=== PATIENT | female | born 1950 | race Asian ===

== ENCOUNTER 2017-08-16 15:30 | Inpatient (IN) | payer MEDICARE, OTHER ==
[2017-08-16] VITALS (7 sets, daily range): BP systolic 140–183; BP diastolic 52–74
[~2017-08-16] VITALS: Ht 160 cm; Wt 54.4 kg
[2017-08-16 16:25] LABS: BASOPHILS % (AUTO) 0.5 % (0.0-2.0); EOSINOPHILS % (AUTO) 0.5 % (0.0-3.0); HEMATOCRIT 34.7 % (37.0-47.0); HEMOGLOBIN 11.2 G/DL (12.0-16.0); LYMPHOCYTES % (AUTO) 32.2 % (20.0-45.0); MEAN CORPUSCULAR VOLUME 91 FL (80-99); MONOCYTES % (AUTO) 8.5 % (1.0-10.0); NEUTROPHILS % (AUTO) 58.3 % (45.0-75.0); PLATELET COUNT 234 K/UL (150-450); RED BLOOD COUNT 3.83 M/UL (4.20-5.40); WHITE BLOOD COUNT 6.1 K/UL (4.8-10.8)
[2017-08-16 16:39] LABS: ANION GAP 12 mmol/L (5-15); BLOOD UREA NITROGEN 23 mg/dL (7-18); CALCIUM 9.3 MG/DL (8.5-10.1); CARBON DIOXIDE 26 MMOL/L (21-32); CHLORIDE 106 MMOL/L (98-107); CREATININE 0.7 MG/DL (0.55-1.30); POTASSIUM 3.5 MMOL/L (3.5-5.1); SODIUM 144 MMOL/L (136-145)
[2017-08-16 16:59] LABS: APPEARANCE,URINE CLEAR; BILIRUBIN, URINE NEGATIVE (NEGATIVE); COLOR,URINE PALE YELLOW; GLUCOSE, URINE (UA) 4+ (NEGATIVE); KETONES,URINE 1+ (NEGATIVE); LEUKOCYTE ESTERASE ,URINE 1+ (NEGATIVE); NITRITE,URINE NEGATIVE (NEGATIVE); PH,URINE 8 (4.5-8.0); PROTEIN,URINE 1+ (NEGATIVE); UROBILINOGEN,URINE NORMAL MG/DL (0.0-1.0)
[2017-08-16 17:03] LABS: ALANINE AMINOTRANSFERASE 15 U/L (12-78); ALBUMIN 4.1 G/DL (3.4-5.0); ALBUMIN/GLOBULIN RATIO 1.2 (1.0-2.7); ALKALINE PHOSPHATASE 86 U/L (46-116); ASPARTATE AMINO TRANSFERASE 16 U/L (15-37); BILIRUBIN,TOTAL 0.6 MG/DL (0.2-1.0); CKMB 0.5 NG/ML (0.0-3.6); CREATINE KINASE 59 U/L (26-308); PHOSPHORUS 3.9 MG/DL (2.5-4.9)
[2017-08-16] MEDS ORDERED: ELIQUIS5 MG PO (17:23)
[2017-08-16] MEDS ORDERED: JANUVIA25 MG ORAL (17:24)
[2017-08-16] MEDS ORDERED: ATORVASTATIN CA80 MG ORAL (17:26)
[2017-08-16] MEDS ORDERED: LEVOTHYROXINE50 MCG ORAL (17:30)
[2017-08-16] MEDS ORDERED: METFORMIN HCL500 M5 PO (17:31)
[2017-08-16] MEDS ORDERED: INVOKANA300 MG PO (17:31)
[2017-08-16] MEDS ORDERED: LISINOPRIL20 MG ORAL (17:32)
--- NOTE | 2017-08-16 18:33 | Emergency Room Report ---
History of Present Illness General Chief Complaint: Vomiting Source: Patient, Significant Other, EMS Present Illness HPI 67yo F p/w vomiting multiple episodes around noon today while visiting [place] area Her reports as they were drivingthis afternoon patient seemed to have passed out as well in the car There was no report of focal weakness slurred speech or any other problems No severe headache, just nausea vomiting and lightheadedness and syncope Allergies: Coded Allergies: No Known Allergies (Unverified , 08/16/17) Patient History Past Medical History: see triage record Reviewed Nursing Documentation: PMH: Agreed, PSxH: Agreed Nursing Documentation-PMH Past Medical History Deferred: Pt Cognitively Impaired Hx Hypertension: Yes Hx Diabetes: Yes Review of Systems All Other Systems: negative except mentioned in HPI Physical Exam Vital Signs Date Time Temp Pulse Resp B/P (MAP) Pulse Ox O2 Delivery O2 Flow Rate FiO2 08/16/17 15:21 98.2 89 20 170/88 99 Room Air Sp02 EP Interpretation: reviewed, normal General Appearance: no apparent distress, alert, non-toxic Head: normocephalic Eyes: bilateral eye normal inspection, bilateral eye PERRL, bilateral eye EOMI ENT: normal ENT inspection, hearing grossly normal, normal pharynx, no angioedema, normal voice, moist mucus membranes Neck: normal inspection, full range of motion, supple, supple/symm/no masses Respiratory: chest non-tender, lungs clear, normal breath sounds, chest symmetrical, palpation of chest normal Cardiovascular #1: normal peripheral pulses, regular rate, rhythm Cardiovascular #2: 2+ radial (R), 2+ radial (L), 2+ dorsalis pedis (R), 2+ dorsalis pedis (L) Gastrointestinal: normal inspection, non tender, soft, no mass, no guarding, no rebound Rectal: deferred Genitourinary: normal inspection, no CVA tenderness Musculoskeletal: back normal, gait/station normal, normal range of motion, non- tender, no calf tenderness Neurologic: alert, oriented x3, responsive, hand upper and bottom lacer III-XII nml as tested, motor strength/tone normal - Patient with history of left-sided wweakness, from old stroke, but on exam today he moves all extremities symmetrically, sensory intact , speech normal Psychiatric: judgement/insight normal, memory normal, mood/affect normal, no suicidal/homicidal ideation Skin: normal color, no rash, warm/dry, normal turgor Lymphatic: no adenopathy Medical Decision Making Diagnostic Impression: Primary Impression: Vomiting ER Course patient with persistent vomiting and dizziness Head CT shows no acute findings, she is on eliquis for old strokes EKG normal Labs normal Chest x-ray and abdominal flat and upright x-ray normal Patient still with nausea No focal finding Negative Homans sign on both legs Will admit for further monitoring diagnosis dizziness persistent vomiting despite Zofran and Phenergan EKG Diagnostic Results EP Interpretation: No ST-T segment changes no T-wave inversions rate 67 Rate: normal Rhythm: NSR ST Segments: no acute changes Rhythm Strip Diag. Results EP Interpretation: yes Rate: 67 Rhythm: NSR, no PVC's, no ectopy Chest X-Ray Diagnostic Results Chest X-Ray Diagnostic Results : Chest X-Ray Ordered: Yes # of Views/Limited/Complete: 1 View Indication: Other EP Interpretation: Yes PA Xray: Interpretation reviewed Interpretation: no consolidation, no effusion, no pneumothorax, no acute cardiopulmonary disease Impression: No acute disease Electronically Signed by: Vilma Pak MD Other X-Ray Diagnostic Results Other X-Ray Diagnostic Results : X-Ray ordered: abd flat and upright Indication: Other EP Interpretation: Yes PA Xray: Interpretation reviewed Interpretation: nonspecific bowel gas, no sbo Impression: No acute disease Electronically Signed by: Vilma Pak MD CT/MRI/US Diagnostic Results CT/MRI/US Diagnostic Results : Imaging Test Ordered: ct head Impression no acute disease per the radiologist Last Vital Signs Date Time Temp Pulse Resp B/P (MAP) Pulse Ox O2 Delivery O2 Flow Rate FiO2 08/16/17 17:40 68 14 159/60 100 Room Air 08/16/17 16:30 97.0 Status: improved Reevaluation Impression patient still with no focal neurologic deficits, but some of her nausea is improved with Zofran and Phenergan As she is on eliquis, I will not give her aspirin Disposition: ADMITTED INPATIENT Condition: Stable Referrals: NON PHYSICIAN (PCP) VILMA PAK M.D Aug 16, 2017 18:33
[2017-08-17] VITALS: BP 136/60
[2017-08-17] MEDS: 1/2NS w/KCl 20mEq 1000ml 1,000 ML IV SCH ×2 (00:47→13:33)
[2017-08-17 04:00] VITALS: BP 150/67
[2017-08-17] MEDS: NovoLOG Insulin Flexpen SUBQ SCH ×4 (06:30→21:00)
[2017-08-17 08:00] VITALS: BP 146/66
--- NOTE | 2017-08-17 08:23 | Diagnostic Imaging Report ---
Indications: Altered mental status Technique: Spiral acquisitions obtained through the brain. Angled axial and coronal 5 x 5 mm slices were reconstructed. Total dose length product 1263.48 mGycm. CTDI vol(s) 70.38 mGy. Dose reduction achieved using automated exposure control Comparison: None. Findings: There is age-related enlargement of the ventricles and extra-axial CSF spaces. There is considerable periventricular deep white matter chronic ischemic change. Old lacunar infarcts are seen in the bilateral basal ganglia, bilateral thalami, bilateral madsen radiata. The palomares-white differentiation is otherwise normal. No acute intracranial hemorrhage or edema. No mass effect or midline shift. There is chronic right maxillary sinus periosteal thickening. Visualized orbits are unremarkable. The mastoids are clear. Impression: Chronic and age-related changes. Multiple old lacunar infarcts. Negative for acute intracranial bleed or mass effect This agrees with the preliminary interpretation provided overnight by [facility]. The CT scanner at [facility] is accredited by the [employer] and the scans are performed using protocols designed to limit radiation exposure to as low as reasonably achievable to attain images of sufficient resolution adequate for diagnostic evaluation.
[2017-08-17] MEDS: Eliquis 2.5mg tablet ORAL SCH ×2 (09:23→19:05)
[2017-08-17] MEDS: metFORMIN 500mg tab ORAL SCH ×3 (09:24→18:00)
[2017-08-17] MEDS: sitaGLIPtin 25mg tab ORAL SCH (09:24)
[2017-08-17] MEDS: Lisinopril 20mg tab ORAL SCH (09:24)
[2017-08-17 11:06] LABS: BASOPHILS % (AUTO) 0.4 % (0.0-2.0); EOSINOPHILS % (AUTO) 0.2 % (0.0-3.0); HEMATOCRIT 33.6 % (37.0-47.0); HEMOGLOBIN 10.8 G/DL (12.0-16.0); LYMPHOCYTES % (AUTO) 15.2 % (20.0-45.0); MEAN CORPUSCULAR VOLUME 91 FL (80-99); NEUTROPHILS % (AUTO) 77.2 % (45.0-75.0); PLATELET COUNT 211 K/UL (150-450); RED BLOOD COUNT 3.69 M/UL (4.20-5.40); RED CELL DISTRIBUTION WIDTH 11.7 % (11.6-14.8); WHITE BLOOD COUNT 5.4 K/UL (4.8-10.8)
[2017-08-17 11:50] LABS: ANION GAP 7 mmol/L (5-15); BLOOD UREA NITROGEN 20 mg/dL (7-18); CALCIUM 8.5 MG/DL (8.5-10.1); CARBON DIOXIDE 27 MMOL/L (21-32); CHLORIDE 104 MMOL/L (98-107); CREATININE 0.7 MG/DL (0.55-1.30); POTASSIUM 3.8 MMOL/L (3.5-5.1); SODIUM 138 MMOL/L (136-145)
[2017-08-17 12:00] VITALS: BP 158/65
--- NOTE | 2017-08-17 12:14 | Diagnostic Imaging Report ---
Indication: Vomiting Technique: Supine view of the abdomen Comparison: None Findings: Circular metallic object projects over the pelvis. Bowel gas pattern is unremarkable. What is presumably a monitoring device projects over the lower chest. No unusual masses. Small calcification projects over the right iliac bone Impression: Round metallic object projecting in the pelvis. Presumably external to the patient, ingested foreign body heights were normal. Correlate with clinical history No acute process otherwise
--- NOTE | 2017-08-17 12:15 | Diagnostic Imaging Report ---
Indication: Vomiting, cough Technique: One view of the chest Comparison: none Findings: The lungs and pleural spaces are clear. The heart size is upper limits of normal. Presumed monitoring device projects over the lower central chest Impression: No acute process
--- NOTE | 2017-08-17 15:45 | History and Physical Report ---
DATE OF ADMISSION: 08/16/2017 CHIEF COMPLAINT: Vomiting. HISTORY OF PRESENT ILLNESS: This is a 67-year-old [place] female, who was transported to this hospital via paramedics due to recurrent episodes of vomiting. The patient was travelling from [place] with family in the [place] area. The patient is wheelchair bound due to multiple episodes of strokes. She started vomiting. PAST MEDICAL HISTORY: 1. Status post multiple CVAs. 2. Hypertensive cardiovascular disease. 3. Hypothyroidism. 4. Type 2 diabetes mellitus. HOME MEDICATIONS: Eliquis, Lipitor, NovoLog sliding scale, Synthroid, lisinopril, metformin, Zofran, and Januvia. ALLERGIES: No known drug allergies. FAMILY HISTORY: Unremarkable. SOCIAL HISTORY: She lives at home. She is nonsmoker and nondrinker. There is no history of illicit drug abuse. REVIEW OF SYSTEMS: Unable to obtain. The patient is nonverbal. PHYSICAL EXAMINATION: GENERAL: This is an elderly [place] female, who is in no acute distress. VITAL SIGNS: Blood pressure is 150/67, pulse 67 and regular, respirations 20, and temperature is 98 degrees. HEENT: Head is normocephalic and atraumatic. Pupils are equal, round, and reactive to light and accommodation consensually. NECK: Supple. Trachea midline. There was no lymphadenopathy or thyromegaly. LUNGS: Clear to auscultation and percussion. HEART: Regular rate and rhythm without rubs, murmurs, or gallops. ABDOMEN: Soft and nontender. Bowel sounds were active. EXTREMITIES: No clubbing, cyanosis, or edema. NEUROLOGICAL: She is confused and dysarthric. She has left hemiplegia. LABORATORY AND ANCILLARY DATA: EKG, normal sinus rhythm. Influenza serology negative. CBC within normal limits. Basic metabolic panel, BUN 23, glucose 165, and lactic acid 2.1, otherwise, within normal limits. ASSESSMENT: Nausea and vomiting, etiology unclear. PLAN: 1. IV fluids. 2. Monitor the patient clinically. 3. Continue home medications. Zuleima Deshpande M.D. DR: JENNIE JOB#: [id number] CC:
[2017-08-17 16:00] VITALS: BP 148/73
--- NOTE | 2017-08-17 16:35 | Diagnostic Imaging Report ---
Indication: Vomiting and abnormal renal function Technique: Langston-scale and duplex images of the upper abdomen were obtained Comparison: none Findings: Gallbladder is nondistended, unremarkable, without stones, wall thickening, nor pericholecystic fluid. Sonographic Crowe's sign is negative. Common bile duct measures too mm in diameter. No intrahepatic biliary ductal dilatation. Liver demonstrates normal echogenicity, no focal abnormality. Portal vein and hepatic veins are patent. Pancreas is unremarkable. Spleen is unremarkable. Left kidney measures 10.6 cm in length. Right kidney measures 10.1 cm length. Both kidneys demonstrate normal echogenicity. There is no hydronephrosis. No focal abnormality . Non-aneurysmal abdominal aorta . Impression: Negative
[2017-08-17 20:00] VITALS: BP 152/53
[2017-08-17] MEDS ORDERED: Atorvastatin 80mg tab ORAL SCH (21:00)
[2017-08-18] VITALS: BP 169/76
[2017-08-18] MEDS: 1/2NS w/KCl 20mEq 1000ml 1,000 ML IV SCH (03:43)
[2017-08-18 04:00] VITALS: BP 185/76
[2017-08-18] MEDS: Lisinopril 20mg tab ORAL SCH (04:23)
[2017-08-18] MEDS: NovoLOG Insulin Flexpen SUBQ SCH (06:30)
[2017-08-18 07:25] VITALS: BP 121/66
[2017-08-18 08:41] LABS: ANION GAP 9 mmol/L (5-15); BLOOD UREA NITROGEN 17 mg/dL (7-18); CALCIUM 9.2 MG/DL (8.5-10.1); CARBON DIOXIDE 27 MMOL/L (21-32); CHLORIDE 107 MMOL/L (98-107); CREATININE 0.7 MG/DL (0.55-1.30); POTASSIUM 3.7 MMOL/L (3.5-5.1); SODIUM 143 MMOL/L (136-145)
[2017-08-18] MEDS: Eliquis 2.5mg tablet ORAL SCH (09:14)
[2017-08-18] MEDS: metFORMIN 500mg tab ORAL SCH (09:15)
[2017-08-18] MEDS: sitaGLIPtin 25mg tab ORAL SCH (09:21)
--- NOTE | 2017-08-18 11:00 | General Progress Note ---
Assessment/Plan Assessment/Plan N+V unknown etiology. Labs + abd. US WNL. s/p CVA stable. DC home Subjective Allergies: Coded Allergies: No Known Allergies (Unverified , 08/16/17) Subjective No N/V Objective Last 24 Hour Vital Signs Date Time Temp Pulse Resp B/P (MAP) Pulse Ox O2 Delivery O2 Flow Rate FiO2 08/18/17 07:25 58 121/66 08/18/17 04:23 185/76 08/18/17 04:00 60 08/18/17 04:00 97.9 55 16 185/76 100 08/18/17 00:00 61 08/18/17 00:00 97.9 65 16 169/76 100 08/17/17 20:00 66 08/17/17 20:00 97.9 68 16 152/53 97 08/17/17 16:00 64 08/17/17 16:00 97.8 78 20 148/73 97 Room Air 08/17/17 12:00 97.9 59 19 158/65 99 Room Air 08/17/17 12:00 65 Laboratory Tests 08/18/17 05:15: Sodium Level 143, Potassium Level 3.7, Chloride Level 107, Carbon Dioxide Level 27, Anion Gap 9, Blood Urea Nitrogen 17, Creatinine 0.7, Estimat Glomerular Filtration Rate > 60, Glucose Level 104#, Calcium Level 9.2, Thyroid Stimulating Hormone (TSH) 0.547 Height (Feet): 5 Height (Inches): 3.00 Weight (Pounds): 120 Objective Cv RR Lungs CTA Abd SNT. BS + E No CCE Neuro A+ O Lt. hemiplegia ANA BOATENG Aug 18, 2017 11:00
[2017-08-18] MEDS ORDERED: Tubing IV Secondary IV ONE (11:59)
--- NOTE | 2017-08-20 13:07 | Discharge Summary ---
Discharge Summary Hospital Course Date of Admission Aug 16, 2017 at 20:00 Date of Discharge Aug 18, 2017 at 12:00 Admitting Diagnosis syncope HPI Emmanuelle Veloz is a 67 year old female who was admitted on Aug 16, 2017 at 20:00 for Syncope Hospital Course [id number] Discharge Discharge Disposition Patient was discharged to Home (01) Discharge Diagnoses: Emani Roy NP Aug 20, 2017 13:07
--- NOTE | 2017-08-21 18:45 | Discharge Summary 2 SIG ---
DATE OF ADMISSION: 08/16/2017 DATE OF DISCHARGE: 08/18/2017 BRIEF HOSPITAL COURSE: The patient is a 67-year-old Thai female who was transported to the hospital via paramedics due to recurrent episodes of vomiting. The patient was traveling from [place] with family in the [place] area. The patient is wheelchair bound due to multiple episodes of stroke. She was noted to have episodes of vomiting and seemed to have passed out while in the car. On evaluation in ED, chest x-ray shows no acute disease, no acute cardiopulmonary disease. No consolidation, effusion, or pneumothorax. Abdominal x-ray showed nonspecific bowel gas pattern. No SBO. Head CT showed chronic age-related changes with multiple old lacunar infarct. Negative for acute intracranial bleed or mass effect. She was given IV fluids. She was tolerating diet. She had abdominal ultrasound was negative. Urine culture showed growth of E. coli. She was eventually discharged home. FINAL DIAGNOSES: 1. Nausea and vomiting, unknown etiology. 2. Status post cerebrovascular accident, stable. DISCHARGE MEDICATIONS: Refer to medication list. DISCHARGE INSTRUCTIONS: Follow up with PMD in a week. Zuleima Deshpande M.D. I have been assigned to dictate discharge summary on this account and I was not involved in the patient's management. Emani Roy N.P. DR: ARTHUR JOB#: [id number] CC:
--- NOTE | 2017-08-24 13:50 | Cardiology Report ---
APPROVED REPORT EKG Measurement Heart [id number] Normal sinus rhythm Normal ECG
== END 2017-08-18 12:00 | disposition home or self-care (01) | DRG 392 ==
LOC: EDBD 15:30 → EMR 16:17 → EDBEDREQ 18:23 → 2E 20:00
DX: R11.2 Nausea with vomiting, unspecified (principal); I69.354 Hemiplegia and hemiparesis following cerebral infarction affecting left non-dominant side; I11.9 Hypertensive heart disease without heart failure; R55 Syncope and collapse; E03.9 Hypothyroidism, unspecified; E11.9 Type 2 diabetes mellitus without complications; Z79.01 Long term (current) use of anticoagulants; Z79.4 Long term (current) use of insulin; Z99.3 Dependence on wheelchair
CPT/HCPCS: 36415; 70450; 71045; 74018; 76700; 80048; 80053; 81003; 82550; 82553; 82962; 83605; 83690; 83735; 83880; 84100; 84443; 84484; 85025; 86710; 87040; 87086; 87181; 93005; 99285; J1815; J2405